=== PATIENT | female | born 1955 | race Caucasian/White ===

== ENCOUNTER 2019-01-26 18:24 | Emergency (ER) | payer BC, OTHER ==
[2019-01-26 18:53] VITALS: BP 160/63; PULSE 96; TEMP 98; BMI 42.0
--- NOTE | 2019-01-26 19:51 | PDOC ---
History of Present Illness - General Chief Complaint: Laceration Stated Complaint: CUT ON LEFT INDEX FINGER Time Seen by Provider: 01/26/19 19:35 - History of Present Illness Initial Comments: 01/26/19 19:48 63-year-old insulin-dependent diabetic presents for evaluation of a laceration which occurred last night at the tip of her finger while cooking. Her tetanus shot is up-to-date Past History - Past Medical History Allergies/Adverse Reactions: Allergies Allergy/AdvReac Type Severity Reaction Status Date / Time No Known Allergies Allergy Unverified 01/26/19 18:53 Home Medications: Ambulatory Orders Aspirin [ASA -] 81 mg PO DAILY 08/02/15 Atorvastatin Ca [Lipitor -] 10 mg PO HS 08/02/15 Dapagliflozin Propanediol [Farxiga] 5 mg PO DAILY 08/02/15 Enalapril Maleate [Vasotec] 5 mg PO DAILY 08/02/15 Liraglutide [Victoza -] 1.2 mg SQ DAILY@0700 08/02/15 Pioglitazone HCl [Actos] 15 mg PO DAILY 08/02/15 metFORMIN HCL [Metformin HCl ER] 1,000 mg PO BID 08/02/15 Anemia: No Asthma: No Cancer: Yes (breast ca) Cardiac Disorders: No CVA: No COPD: No CHF: No Dementia: No Diabetes: Yes GI Disorders: No Disorders: No HTN: Yes Hypercholesterolemia: Yes Liver Disease: No Seizures: No Thyroid Disease: No - Surgical History Abdominal Surgery: No Appendectomy: No Cardiac Surgery: No Cholecystectomy: No Lung Surgery: No Neurologic Surgery: No Orthopedic Surgery: No - Immunization History Immunization Up to Date: Yes - Suicide/Smoking/Psychosocial Hx Smoking History: Never smoked Have you smoked in the past 12 months: No Hx Alcohol Use: No Drug/Substance Use Hx: No Review of Systems - Review of Systems Musculoskeletal: Yes: See HPI *Physical Exam - Vital Signs Last Vital Signs Temp Pulse Resp BP Pulse Ox 98 F 96 H 18 160/63 96 01/26/19 18:50 01/26/19 18:50 01/26/19 18:50 01/26/19 18:50 01/26/19 18:50 - Physical Exam Comments: 01/26/19 19:49 Left second finger skin is slightly macerated certainly no erythema areas of fluctuance or tenderness. There is a small dermal avulsion which is held in place nicely at the tip of the finger. No gross sensory motor deficits neurovascular intact. Medical Decision Making - Medical Decision Making 01/26/19 19:49 I placed a Steri-Strip radialy lelia ulnarly around the tip of the finger held in place loosely circumferentially with another Steri-Strip allowed the patient to wash with soap and water and leave the area open to air. The area is healing tetanus is up-to-date. Wound care instructions given *DC/Admit/Observation/Transfer Diagnosis at time of Disposition: Avulsion of skin of finger - Discharge Dispostion Disposition: HOME Condition at time of disposition: Stable Decision to Admit order: No - Referrals Referrals: Ham Kaba MD [Staff Physician] - - Patient Instructions Additional Instructions: Please keep the area clean with soap and water. Please keep the area left open to air as much as possible. Do not soak the area or submersion in water until the wound is completely 100% healed. She is a dressing in 48 hours as showing T1 the emergency room return to the emergency room for any indication of infection such as redness, drainage, swelling, or increasing pain. Follow-up with hand surgery in 1-2 days for further evaluation and treatment options should you have further issues or return to the emergency room for further issues at any time. - Post Discharge Activity
== END 2019-01-26 20:14 | disposition home or self-care (01) ==
LOC: JERFT 18:24
DX: S61.211A Laceration without foreign body of left index finger without damage to nail, initial encounter (principal); E11.9 Type 2 diabetes mellitus without complications; Z85.3 Personal history of malignant neoplasm of breast; I10 Essential (primary) hypertension
CPT/HCPCS: 99282-25